=== PATIENT | male | born 1960 | race Caucasian/White ===

== ENCOUNTER 2018-12-06 23:20 | Emergency (ER) | payer MEDICAID, OTHER ==
[~2018-12-06] VITALS: Ht 170.2 cm; Wt 59.1 kg
[~2018-12-06 23:20] MED LIST: DIAZ5TAB4
[2018-12-06 23:40] VITALS: Ht 170.2 cm; Wt 59.1 kg
[2018-12-07] MEDS ORDERED: NAPR-985 PO (04:30)
--- NOTE | 2018-12-07 04:55 | ERD ---
ER Documentation Chief Complaint Chief Complaint RIGHT SHOULDER PAIN. HPI 58-year-old male with history of PTSD and anxiety who presents to the ED complaining of right shoulder pain for the past 1-1/2 weeks. Patient is very vague about the onset of his pain and only repetitively states that "people were pounding on it." He denies any recent fall. He states he has pain with any movement of his arm. Pain exacerbated by cold weather. Denies any numbness or tingling. Denies any chest pain. Denies any shortness of breath. Denies any neck pain. Patient has not been taking any medications for this. He is right- hand dominant. ROS All systems reviewed and are negative except as per history of present illness. Medications Home Meds Active Scripts Acetaminophen/Dp-Hydramine (MIDOL PM CAPLET) 1 Each Tablet, 1 EACH PO Q6 for Pain, #30 TAB Prov:JUANJOSEIGRTELLYANRACHELL-C 12/07/18 Naproxen* (Naprosyn*) 500 Mg Tablet, 500 MG PO BID PRN for PAIN AND/OR INFLAMMATION, #30 TAB Prov:JUANJOSEIGRRACHELL C[place]AND PA-C 12/07/18 Reported Medications Diazepam* (Diazepam*) 5 Mg Tablet 05/04/10 Allergies Allergies: Coded Allergies: Aspirin (Verified Allergy, Mild, 05/04/10) Haloperidol (Verified Allergy, Mild, 05/04/10) Olanzapine (Verified Allergy, Mild, 05/04/10) PMhx/Soc History of Surgery: No Anesthesia Reaction: No Hx Neurological Disorder: No Hx Respiratory Disorders: No Hx Cardiac Disorders: No Hx Psychiatric Problems: Yes (PTSD, SOCIAL ANXIETY) Hx Miscellaneous Medical Probl: Yes (FIBROMYLAGIA) Hx Alcohol Use: No Hx Substance Use: No Hx Tobacco Use: No Smoking Status: Never smoker Physical Exam Vitals Vital Signs Date Temp Pulse Resp B/P (MAP) Pulse Ox O2 O2 Flow FiO2 Time Delivery Rate 12/06/18 98.1 83 14 151/91 96 23:40 (111) Physical Exam Const: No acute distress. + Disheveled. Anxious. Head: Atraumatic Eyes: Normal Conjunctiva ENT: Normal External Ears, Nose and Mouth. Neck: Full range of motion. No meningismus. Resp: Clear to auscultation bilaterally Cardio: Regular rate and rhythm, no murmurs Abd: Soft, non tender, non distended. Normal bowel sounds Skin: No petechiae or rashes Back: No midline or flank tenderness Ext: + No obvious deformity or deformity of the right shoulder. Unable to raise right arm secondary to pain, crepitus/cracking with slight rotation of the shoulder. Axillary, median, ulnar, radial nerves intact. Sensation grossly intact. Cap refill less than 2 seconds. Left upper extremity normal. Neur: Awake and alert Psych: + Pressured speech. Normal Mood and Affect Procedures/MDM LABS & DIAGNOSTIC IMAGING: PROCEDURE: Right shoulder series CLINICAL INDICATION: Pain TECHNIQUE: 3 views right shoulder were obtained COMPARISON: None FINDINGS: Severe degenerate joint disease right glenohumeral joint. No acute fractures dislocation or AC separation. No focal bony blastic or lytic lesions. Soft tissues are unremarkable. IMPRESSION: Severe degenerate joint disease right glenohumeral joint without fracture dislocation or AC separation. MEDICAL DECISION MAKING: This is a 58-year-old male who presents with right shoulder pain. X-ray of the right shoulder reveals severe osteoarthritis. Patient is neurovascular intact on my physical exam. I have low suspicion for neurovascular injury or tendon injury. Patient will be placed in a sling for comfort. I recommended PCP orthopedic follow-up in the next 1 week. Patient may need surgery if symptoms continue to progress. Return precautions were discussed. I did recommend ibuprofen/naproxen for pain however patient continually requested a prescription for Midol instead. This is therefore provided. PRESCRIPTIONS: Midol FOLLOW UP RECOMMENDED: ORTHO Departure Diagnosis: Primary Impression: DJD (degenerative joint disease) Osteoarthritis location: shoulder Osteoarthritis type: unspecified Laterality: right Qualified Codes: M19.011 - Primary osteoarthritis, right shoulder Condition: Stable Patient Instructions: What Is Osteoarthritis?, Osteoarthritis: Coping with Pain Referrals: COMMUNITY CLINICS YOU HAVE RECEIVED A MEDICAL SCREENING EXAM AND THE RESULTS INDICATE THAT YOU DO NOT HAVE A CONDITION THAT REQUIRES URGENT TREATMENT IN THE EMERGENCY DEPARTMENT. FURTHER EVALUATION AND TREATMENT OF YOUR CONDITION CAN WAIT UNTIL YOU ARE SEEN IN YOUR DOCTORS OFFICE WITHIN THE NEXT 1-2 DAYS. IT IS YOUR RESPONSIBILITY TO MAKE AN APPOINTMENT FOR FOLOW-UP CARE. IF YOU HAVE A PRIMARY DOCTOR --you should call your primary doctor and schedule an appointment IF YOU DO NOT HAVE A PRIMARY DOCTOR YOU CAN CALL OUR PHYSICIAN REFERRAL HOTLINE AT IF YOU CAN NOT AFFORD TO SEE A PHYSICIAN YOU CAN CHOSE FROM THE FOLLOWING COMMUNITY CLINICS [facility] [address] [facility] [address] [facility] [address] [facility] [address] [facility] [address] [facility] [address] [facility]. [facility] YOU HAVE RECEIVED A MEDICAL SCREENING EXAM AND THE RESULTS INDICATE THAT YOU DO NOT HAVE A CONDITION THAT REQUIRES URGENT TREATMENT IN THE EMERGENCY DEPARTMENT. FURTHER EVALUATION AND TREATMENT OF YOUR CONDITION CAN WAIT UNTIL YOU ARE SEEN IN YOUR DOCTORS OFFICE WITHIN THE NEXT 1-2 DAYS. IT IS YOUR RESPONSIBILITY TO MAKE AN APPOINTMENT FOR FOLOW-UP CARE. IF YOU HAVE A PRIMARY DOCTOR --you should call your primary doctor and schedule and appointment IF YOU DO NOT HAVE A PRIMARY DOCTOR YOU CAN CALL OUR PHYSICIAN REFERRAL HOTLINE AT . IF YOU CAN NOT AFFORD TO SEE A PHYSICIAN YOU CAN CHOSE FROM THE FOLLOWING [facility] INSTITUTIONS: [facility] [address] [place] [address] [facility] [address] [place] [address] [facility] [address] [place] [address] Additional Instructions: Call your primary care doctor TOMORROW for an appointment during the next 2-4 days and bring all the information and medications prescribed. If the symptoms get worse and your provider is unavailable, return to the Emergency Department immediately. RACHELL DAVENPORT PA-C Dec 07, 2018 04:55
[2018-12-07] MEDS ORDERED: [UNRECOGNIZED DRUG - CODE] PO (05:06)
[2018-12-07 05:12] VITALS: BP 138/72; PULSE 80; RESP 17
== END 2018-12-07 05:12 | disposition home or self-care (01) ==
LOC: FTE 23:20 → EDSEX 23:20 → FTE 12-07 05:12
DX: M19.011 Primary osteoarthritis, right shoulder (principal)

== ENCOUNTER 2019-01-13 13:01 | Emergency (ER) | payer MEDICAID, OTHER ==
[~2019-01-13] VITALS: Ht 172.7 cm; Wt 70.0 kg
[~2019-01-13 13:01] MED LIST changes: +FURO-110 PO; +NAPR-985 PO; +[UNRECOGNIZED DRUG - CODE] PO
[2019-01-13 13:08] VITALS: Ht 172.7 cm; Wt 70.0 kg
--- NOTE | 2019-01-13 15:15 | ERD ---
ER Documentation Chief Complaint Chief Complaint b/l leg pain and scrotal pain x 5 days HPI This is a 58-year-old man with history of methamphetamine abuse, homeless, presenting with 1 to 2 weeks of lower extremity swelling and edema with edema going up to the scrotum. Patient denies dysuria or back pain, no hematuria, no penile discharge, no complaints of chest pain or shortness of breath. Patient does have history of anxiety and psychiatric illness but denies suicidal homicidal ideation ROS All systems reviewed and are negative except as per history of present illness. Medications Home Meds Active Scripts Furosemide* (Lasix*) 20 Mg Tablet, 20 MG PO DAILY, #7 TAB Prov:ERIN CORRIGAN MD 01/13/19 Discontinued Reported Medications Diazepam* (Diazepam*) 5 Mg Tablet 05/04/10 Discontinued Scripts Acetaminophen/Dp-Hydramine (MIDOL PM CAPLET) 1 Each Tablet, 1 EACH PO Q6 for Pain, #30 TAB Prov:DISHIGRIKIAN,ZEPYUR N PA-C 12/07/18 Naproxen* (Naprosyn*) 500 Mg Tablet, 500 MG PO BID PRN for PAIN AND/OR INF LAMMATION, #30 TAB Prov:DISHIGRIKIANZEPYUR N PA-C 12/07/18 Allergies Allergies: Coded Allergies: aspirin (Verified Allergy, Mild, 01/13/19) haloperidol (Verified Allergy, Mild, 01/13/19) olanzapine (Verified Allergy, Mild, 01/13/19) PMhx/Soc Anxiety, chronic psychiatric illness, chronic peripheral edema History of Surgery: No Anesthesia Reaction: No Hx Neurological Disorder: No Hx Respiratory Disorders: No Hx Cardiac Disorders: No Hx Psychiatric Problems: Yes (PTSD, SOCIAL ANXIETY) Hx Miscellaneous Medical Probl: Yes (FIBROMYLAGIA) Hx Alcohol Use: No Hx Substance Use: No Hx Tobacco Use: No FmHx Family History: No diabetes Physical Exam Vitals Vital Signs Date Temp Pulse Resp B/P (MAP) Pulse Ox O2 O2 Flow FiO2 Time Delivery Rate 01/13/19 98.2 81 18 146/80 97 13:08 (102) Physical Exam Const: No acute distress, well-developed well-nourished, afebrile Resp: Clear to auscultation bilaterally Cardio: Regular rate and rhythm, no murmurs Abd: Soft, non tender, non distended. Normal bowel sounds Skin: No petechiae or rashes, superficial skin ulcers to the lower and upper extremities bilaterally concerning for drug abuse, no pustules or vesicles noted, no purulent discharge noted Ext: No cyanosis, 3+ pitting edema in the lower extremities bilaterally with bilateral xerosis cutis and chronic erythematous changes to the skin of the lower extremities, calves symmetrical, distal pulses equal bilateral Neur: Awake and alert x3, no focal deficits or facial asymmetry, pupils equal round reactive to light Psych: Normal Mood and Affect Result Diagram: 01/13/19 1527 01/13/19 1526 Results 24 hrs Laboratory Tests Test 01/13/19 15:26 01/13/19 15:27 Sodium Level 140 mmol/L Potassium Level 4.9 mmol/L Chloride Level 105 mmol/L Carbon Dioxide Level 25 mmol/L Anion Gap 10 Blood Urea Nitrogen 27 mg/dl Creatinine 1.13 mg/dl Est Glomerular Filtrat Rate mL/min > 60 mL/min Glucose Level 102 mg/dl Calcium Level 9.1 mg/dl White Blood Count 11.0 10^3/ul Red Blood Count 4.13 10^6/ul Hemoglobin 12.3 g/dl Hematocrit 39.7 % Mean Corpuscular Volume 96.1 fl Mean Corpuscular Hemoglobin 29.8 pg Mean Corpuscular Hemoglobin Concent 31.0 g/dl Red Cell Distribution Width 14.0 % Platelet Count 380 10^3/UL Mean Platelet Volume 9.5 fl Immature Granulocytes % 0.300 % Neutrophils % 60.3 % Lymphocytes % 26.2 % Monocytes % 10.3 % Eosinophils % 2.2 % Basophils % 0.7 % Nucleated Red Blood Cells % 0.0 /100WBC Immature Granulocytes # 0.030 10^3/ul Neutrophils # 6.6 10^3/ul Lymphocytes # 2.9 10^3/ul Monocytes # 1.1 10^3/ul Eosinophils # 0.2 10^3/ul Basophils # 0.1 10^3/ul Nucleated Red Blood Cells # 0.0 10^3/ul Current Medications Medications Dose Sig/Leora Start Time Status Last (Trade) Ordered Route PRN Stop Time Admin Dose Reason Admin Furosemide 40 mg ONCE ONCE 01/13/19 DC 01/13/19 (Lasix) PO 15:30 15:50 01/13/19 15:31 Procedures/MDM CBC and electrolytes were normal. I administered furosemide 40 mg p.o. x1. Differential diagnoses considered, included but not limited to acute coronary syndrome, pulmonary embolism, aortic dissection, abdominal aortic aneurysm, sepsis, stroke, meningitis, encephalitis, pneumonia, appendicitis, cholecystitis, bowel obstruction, pyelonephritis, nephrolithiasis, cystitis, as well as metabolic, hematologic, and electrolyte abnormalities. As well as abscess, cellulitis, fractures, and dislocations. Patient feels much better at this time, and vital signs are normal, symptoms have improved. I did give strict instructions to return to the ED if symptoms continue or worsen, patient will otherwise follow-up with primary care physician. Patient understood instructions and agreed to plan. Disclaimer: Inadvertent spelling and grammatical errors are likely due to EHR/dictation software use and do not reflect on the overall quality of patient care. Also, please note that the electronic time recorded on this note does not necessarily reflect the actual time of the patient encounter. Departure Diagnosis: Primary Impression: Peripheral edema Additional Impressions: Stasis dermatitis Laterality: bilateral Qualified Codes: I87.2 - Venous insufficiency (chronic) (peripheral) Methamphetamine abuse Condition: ERIN De Jesus MD Jan 13, 2019 15:15
[2019-01-13] MEDS ORDERED: FUROSEMIDE 20 MG TAB PO ONE (15:30)
[2019-01-13 17:03] VITALS: BP 138/82; PULSE 78; RESP 17
== END 2019-01-13 17:25 | disposition home or self-care (01) ==
LOC: E/R 13:01
DX: R22.43 Localized swelling, mass and lump, lower limb, bilateral (principal); I87.2 Venous insufficiency (chronic) (peripheral); F15.10 Other stimulant abuse, uncomplicated; Z59.0 Homelessness
CPT/HCPCS: 80048; 85025; Z7502; Z7610; 99283

== ENCOUNTER 2019-01-18 05:34 | Emergency (ER) | payer MEDICAID ==
[~2019-01-18] VITALS: Ht 167.6 cm; Wt 72.5 kg
[~2019-01-18 05:34] MED LIST changes: -DIAZ5TAB4; -NAPR-985 PO; -[UNRECOGNIZED DRUG - CODE] PO
[2019-01-18 05:59] VITALS: BP 142/91; PULSE 111; RESP 22; Ht 167.6 cm; Wt 72.5 kg
--- NOTE | 2019-01-18 11:10 | ERD ---
ER Documentation Chief Complaint Chief Complaint SOB x 5days, chronic smoker & manas leg edema HPI This is a 58-year-old male with a past medical history of hypertension, homelessness, polysubstance abuse, psychiatric illness who is presenting for persistent bilateral lower extremity and scrotal edema. The patient reports that he has had several weeks of this swelling. He reports being homeless and frequently being on his feet. He endorses chronic lower extremity skin changes with no warmth or erythema or induration. Despite the scrotal edema, he does not endorse any significant pain. He does not endorse dysuria or hematuria or urgency or frequency. He does not endorse any urethral discharge. The patient was evaluated 5 days ago for the same complaints. The patient had blood work drawn that was reassuring. The patient was discharged with a week's prescription of Lasix. He reports that this does seem to be helping somewhat. The patient has not attempted any supportive underwear to help with his scrotal edema. He has not followed up at an outpatient clinic since then. The patient denies feeling sick recently. The patient denies fever or chills. The patient has had no headache or vision changes. The patient does not endorse neck or back pain. The patient denies lightheadedness or dizziness. The patient has had no chest pain or trouble breathing. The patient denies nausea or vomiting. The patient denies abdominal pain. The patient denies changes to bowel movements or urination. The patient has had no focal deficits. The patient has had no weakness or numbness or tingling to the face or extremities. ROS All systems reviewed and are negative except as per history of present illness. Medications Home Meds Active Scripts Furosemide* (Lasix*) 20 Mg Tablet, 20 MG PO DAILY, #7 TAB Prov:ERIN CORRIGAN MD 01/13/19 Discontinued Reported Medications Diazepam* (Diazepam*) 5 Mg Tablet 05/04/10 Discontinued Scripts Acetaminophen/Dp-Hydramine (MIDOL PM CAPLET) 1 Each Tablet, 1 EACH PO Q6 for Pain, #30 TAB Prov:JUANJOSEIGRRACHELL CLEVELAND PA-C 12/07/18 Naproxen* (Naprosyn*) 500 Mg Tablet, 500 MG PO BID PRN for PAIN AND/OR INFLAMMATION, #30 TAB Prov:RACHELL DAVENPORT-C 7/6/19 Allergies Allergies: Coded Allergies: aspirin (Verified Allergy, Mild, 01/13/19) haloperidol (Verified Allergy, Mild, 01/13/19) olanzapine (Verified Allergy, Mild, 01/13/19) PMhx/Soc History of Surgery: No Anesthesia Reaction: No Hx Neurological Disorder: No Hx Respiratory Disorders: No Hx Cardiac Disorders: Yes (HTN) Hx Psychiatric Problems: Yes (PTSD, SOCIAL ANXIETY, DEPRESSION) Hx Miscellaneous Medical Probl: Yes (FIBROMYLAGIA) Hx Alcohol Use: Yes Hx Substance Use: Yes (DAILY METH) Hx Tobacco Use: Yes FmHx Family History: No diabetes Physical Exam Vitals Vital Signs Date Temp Pulse Resp B/P (MAP) Pulse Ox O2 O2 Flow FiO2 Time Delivery Rate 01/18/19 97.6 111 22 142/91 98 05:59 (108) Physical Exam Const: No acute distress. Disheveled. Head: Atraumatic Eyes: Normal Conjunctiva ENT: Normal External Ears, Nose and Mouth. Neck: Full range of motion. No meningismus. Resp: Clear to auscultation bilaterally Cardio: Regular rate and rhythm, no murmurs Abd: Soft, non tender, non distended. Normal bowel sounds : Plumbing Service Technician present at all times. Scrotal edema without tenderness or erythema or induration or fluctuance or purulence or crepitus or discoloration. Skin: No petechiae or rashes Back: No midline or flank tenderness Ext: No cyanosis. Symmetric bilateral lower extremity 2+ pitting edema without erythema or induration or purulence or fluctuance. Neur: Awake and alert Psych: Normal Mood and Affect. No SI or HI. No AH or VH. Procedures/MDM MDM Previous medical records, if available, were reviewed. Patient presents for persistent bilateral lower extremity and scrotal edema. The patient does require outpatient evaluation of this, but I do not suspect an emergent pathology. Venous insufficiency and dependent edema are possible. The patient does have a history of polysubstance abuse. The patient does not have any abdominal tenderness or fullness, so my suspicion for venous obstruction due to a hepatic pathology is low. The patient is still urinating without difficulty. He has no flank pain. I do not suspect acute kidney injury or chronic kidney disease. The patient's creatinine from 5 days ago was unremarkable. His symptoms are not consistent with DVT. I have low suspicion for an infectious etiology. The patient does not have any tenderness. I do not suspect orchitis or epididymitis. The patient does not have symptoms concerning for a sexually transmitted infection. I do not see any evidence of Bubba's gangrene. There is no evidence of cellulitis or abscess or another soft tissue infection to the scrotum or the lower extremities. There is no evidence of trauma. I do not suspect fracture or dislocation. The patient is ambulatory without difficulty. The patient has no respiratory complaints. I have a low suspicion for a cardiopulmonary process. The patient has a normal cardiac and lung exam. His lungs are clear with full breath sounds. I do not suspect pneumonia or pneumothorax or pleural effusions or pulmonary edema. The patient does not have a history of heart failure and I have low suspicion for this. I have decreased suspicion for PE. I have low suspicion for acute coronary syndrome. I do not suspect pulmonary hypertension as the etiology of today's presentation.. TREATMENT/DISPOSITION The patient does not require emergent treatment. The patient may complete the course of Lasix as previously prescribed. I will give the patient a refill of this medication when he runs out. He understands any needs to follow-up in an outpatient setting for further assessment. The patient may also try supportive underwear to help decrease his scrotal swelling. DISCHARGE Upon reevaluation of the patient, symptoms have improved. No emergent diagnoses were identified. At this time, I feel that the patient stable for discharge. The patient was instructed to follow-up with a primary care physician in 1-3 days. The patient will be given strict precautions with which to return to the emergency department. Prescriptions: Refill for Lasix The patient's blood pressure was elevated at greater than 120/80 while in the emergency department. The patient was otherwise stable with no evidence of hypertensive urgency or emergency. The patient does not require admission for blood pressure control. I have discussed with the patient the risks of hypertens ion. I have instructed the patient to return to the ER for any new or worsening symptoms including chest pain, shortness of breath, headache, blurred vision, confusion, nausea, vomiting or LOC. I have advised the patient to follow up with the primary care physician for outpatient monitoring and treatment for hypertension in 1-3 days. DISCLAIMER Inadvertent spelling and grammatical errors are likely due to EHR/dictation software use and do not reflect on the overall quality of patient care. Note that the electronic time recorded on this note does not necessarily reflect the actual time of the patient encounter. Departure Diagnosis: Primary Impression: Scrotal edema Additional Impressions: Dependent edema Stasis edema of both lower extremities Condition: Stable Patient Instructions: Peripheral Edema, Bilateral Additional Instructions: Thank you for for coming to [facility] for your care today. Please ask your nurse or provider if you have questions about your care today and do not leave until all your questions have been answered. Please use any medications given as directed and follow-up with your doctor (or the doctor you were referred to) in the next 1-3 days. If you do not have a primary care doctor you may follow up at the [facility] or [facility] (listed below). You may also use motrin and tylenol as needed for fever and/or pain unless instructed otherwise by your provider or nurse. Indications for more urgent follow-up have been discussed, but you may return to the Emergency Department at ANY time for any worrisome or worsening symptoms. If you have abdominal pain, please know that no test or exam you received is perfect and you should follow up within 8 hours for continued pain. If you had any imaging studies today, such as an X-Ray or CT Scan, these studies will be reviewed later by a radiologist. You will be called if there are important findings that were not identified today, so make sure the contact information you provided at registration is correct. If you received any narcotic pain control medicine today, such as Vicodin, Morphine or Dilaudid, your coordination and judgment may be affected for a number of hours. Please do not drive or operate heavy machinery, and you may want someone to assist you at home. If you were given a prescription for narcotic medication, be aware that it is very addictive- use sparingly and only if necessary. PLEASE SEEK FURTHER EVALUATION AND MANAGEMENT AT YOUR DOCTORS OFFICE WITHIN THE NEXT 1-3 DAYS. IT IS YOUR RESPONSIBILITY TO MAKE AN APPOINTMENT FOR FOLOW-UP CARE. IF YOU HAVE A PRIMARY DOCTOR, PLEASE CALL THEIR OFFICE TO SCHEDULE AN A PPOINTMENT FOR FOLLOW UP. IF YOU DO NOT HAVE A PRIMARY DOCTOR YOU CAN CALL OUR PHYSICIAN REFERRAL HOTLINE AT IF YOU CAN NOT AFFORD TO SEE A PHYSICIAN YOU CAN CHOSE FROM THE FOLLOWING [facility] OR [facility] CLINICS[facility] [address] [facility] [address] [facility]. [facility] [address] [facility] [address] [facility] [address] [facility] [facility] [facility] [id number] [place] [id number] [facility] [address] [place] [address] [facility] [address] [place] [address] GIANNI RAYMOND MD Jan 18, 2019 11:08
== END 2019-01-18 11:35 | disposition home or self-care (01) ==
LOC: E/R 05:34
DX: N50.89 Other specified disorders of the male genital organs (principal); I87.2 Venous insufficiency (chronic) (peripheral); I10 Essential (primary) hypertension; Z87.891 Personal history of nicotine dependence
CPT/HCPCS: 99283

== ENCOUNTER 2019-02-01 13:10 | Emergency (ER) | payer MEDICAID, OTHER ==
[~2019-02-01] VITALS: Ht 167.6 cm; Wt 65.0 kg
[2019-02-01 13:19] VITALS: Ht 167.6 cm; Wt 65.0 kg
[2019-02-01] MEDS ORDERED: SOD CHLORIDE 0.9% 500 ML IV STA (16:27)
[2019-02-01] MEDS ORDERED: ALBUTEROL 0.083% (NEB) 2.5 MG/3 ML AMP NEB STA (16:27)
[2019-02-01] MEDS ORDERED: ENOXAPARIN 80 MG/0.8 ML SYG SC SCH (19:00)
[2019-02-01] MEDS ORDERED: NITROGLYCERIN 2% 1 GM OINT PKT TD STA (19:20)
[2019-02-01] MEDS ORDERED: FUROSEMIDE 40 MG INJ IV ONE (19:30)
[2019-02-01] MEDS ORDERED: ONDANSETRON 4 MG INJ IV PRN (20:30)
[2019-02-01] MEDS ORDERED: ACETAMINOPHEN 325 MG TAB PO PRN (20:30)
[2019-02-01] MEDS ORDERED: LORAZEPAM 2 MG INJ IV ONE (22:00)
[2019-02-01 23:30] VITALS: BP 150/110; PULSE 115; RESP 18
== END 2019-02-01 23:30 | disposition short-term general hospital (02) ==
LOC: E/R 13:10
DX: I21.4 Non-ST elevation (NSTEMI) myocardial infarction (principal); F17.210 Nicotine dependence, cigarettes, uncomplicated; I11.0 Hypertensive heart disease with heart failure; I50.9 Heart failure, unspecified; Z59.0 Homelessness
CPT/HCPCS: 71045; 80053; 83880; 84484; 85025; 93005; 94664; 96372; 96374; 96375; J1650; J1940; J2060; J7040; Z7502; Z7610